=== PATIENT | female | born 1975 | race Caucasian/White ===

== ENCOUNTER → 2024-02-26 | Outpatient (CLI) | payer BC ==
[~2024-02-26] MED LIST: CALCAVITD PO; CONESTTC VAG; IBUP800 PO; MULTI VITAMIN1 EACH PO; OXYC10TA19 PO
[2024-02-26 13:01] LABS: Bun/Creatinine Ratio 13.7 (12.0-20.0); Calcium, Blood 8.9 mg/dL (8.5-10.1); Creatinine, Blood 0.95 mg/dL (0.40-1.00); Potassium, Blood 4.2 mmol/L (3.5-5.5); Thyroid Stimulating Hormone 1.401 uIU/mL (0.360-4.800)
== END ==
LOC: LAB 12:32 → LAB SHORT 12:32
PROVIDERS: Physician Assistant Medical
DX: R53.83 Other fatigue (principal)
CPT/HCPCS: 80048; 83880; 84443; 84484